=== PATIENT | female | born 1940 | race Caucasian/White ===

== ENCOUNTER 2018-08-04 19:31 | Inpatient (IN) | payer OTHER ==
[2018-08-04] MEDS ORDERED: NA CHLORIDE 0.9% 1,000 ML ONE (20:21)
[2018-08-04] MEDS ORDERED: CEFTRIAXONE/SWI 1gm 1 GM/10 ML SYR ONE (20:21)
--- NOTE | 2018-08-04 20:38 | RAD REPORT ---
EXAM DESCRIPTION: CT - Head Brain Wo Cont - 08/04/2018 8:28 pm CLINICAL HISTORY: Alteration of awareness/confusion COMPARISON: None TECHNIQUE: Computed axial tomography of the head was obtained. IV contrast was not requested. All CT scans are performed using dose optimization technique as appropriate and may include automated exposure control or mA/KV adjustment according to patient size. FINDINGS: An intracranial bleed is not seen . The ventricles are normal in caliber. Cerebral atrophy is present No extra-axial fluid collection is noted. Mild low-density areas within periventricular, deep and sub cortical white matter likely represent ischemic changes secondary to small vessel disease. Fluid within the sinuses/ mastoids is not seen. IMPRESSION: No acute intracranial abnormality is seen. If patient's symptoms persist MRI of the bra in would be recommended.
[2018-08-04 20:41] LABS: Absolute Lymphocytes (CBC) 1.9 K/uL (0.7-4.9); Absolute Monocytes 0.5 K/uL (0.1-1.3); Basophils % 0.8 % (0-1.3); Eosinophils % 2.3 % (0-4.4); Hematocrit 36.4 % (36.0-45.0); Lymphocytes % 34.5 % (15.3-44.8); MPV 9.7 fL (7.6-11.3); Monocytes % 8.7 % (3.3-12.3); RBC Red Blood Cell Count 3.94 M/uL (3.86-4.86)
[2018-08-04 20:44] LABS: Protime INR 1.04
[2018-08-04 20:58] LABS: ALT/SGPT 11 U/L (12-78); AST/SGOT 9 U/L (15-37); Albumin 3.2 g/dL (3.4-5.0); Alkaline Phosphatase 80 U/L (45-117); BUN Blood Urea Nitrogen 8 mg/dL (7-18); Bicarbonate 30 mmol/L (21-32); Bilirubin Direct 0.2 mg/dL (0-0.2); Bilirubin Total 0.6 mg/dL (0.2-1.0); CKMB Creatine Kinase MB 1.1 ng/mL (0.3-3.6); Creatine Phosphokinase 27 U/L (26-192); Glucose Level 93 mg/dL (74-106); Lipase 143 U/L (73-393); Potassium 3.3 mmol/L (3.5-5.1); Protein, Total 7.2 g/dL (6.4-8.2); Sodium Level 145 mmol/L (136-145); Troponin (Emerg Dept Use Only) < 0.02 ng/mL (0.0-0.045)
--- NOTE | 2018-08-04 21:01 | RAD REPORT ---
EXAM DESCRIPTION: [place] Single View08/04/2018 8:53 pm CLINICAL HISTORY: Chest pain COMPARISON: 2017 FINDINGS: 13 millimeter nodular opacity overlying the left upper lobe is unchanged. Right lung appears clear of acute infiltrate. The heart is mildly to moderately enlarged
[2018-08-04] MEDS ORDERED: LABETALOL 20 MG/4ML SYRINGE IV ONE (21:42)
--- NOTE | 2018-08-04 22:55 | ER ---
Nurse's Notes [facility] Name: Ana María Prater Age: 78 yrs Sex: Female : 1940 Arrival Date: 08/04/2018 Time: 19:34 Bed 8 Private MD: Diagnosis: Hypertensive encephalopathy Presentation: 08/04 19:20 Presenting complaint: EMS states: EMS reports patient's stated she took a nap ea earlier today and woke up confused and had trouble speaking that lasted a few moments. EMS stated reports she has dementia, NIH scale was negative. EMS reports BGL 104, pt ambulated to stretcher without assistance. Transition of care: patient was not received from another setting of care. Onset of symptoms was August 04, 2018. Risk Assessment: Do you want to hurt yourself or someone else? Patient reports no desire to harm self or others. Initial Sepsis Screen: Does the patient meet any 2 criteria? No. Patient's initial sepsis screen is negative. Does the patient have a suspected source of infection? No. Patient's initial sepsis screen is negative. Care prior to arrival: labetalol 10 mg IV. 19:20 Method Of Arrival: EMS: [facility] ea 19:20 Acuity: JHON 3 ea Triage Assessment: 19:58 General: Appears in no apparent distress. Behavior is calm, cooperative. Pain: Denies ea pain. Neuro: Level of Consciousness is awake, alert, obeys commands, Oriented to person, [employer] are equal bilaterally Moves all extremities. Speech is normal, Facial symmetry appears normal. Cardiovascular: Patient's skin is warm and dry. Respiratory: Airway is patent Respiratory effort is even, unlabored, Respiratory pattern is regular, symmetrical. Derm: Skin is pink, warm \T\ dry. Historical: - Allergies: 20:01 Codeine; ea 20:01 PENICILLINS; ea - Home Meds: 20:01 valsartan 320 mg Oral tab 1 tab [Active]; Namenda Oral [Active]; metoprolol tartrate 50 ea mg Oral tab 1 tab [Active]; - PMHx: 20:01 Hypertension; Dementia; ea - PSHx: 20:01 Hysterectomy; ea - Immunization history:: Adult Immunizations up to date. - Social history:: Smoking status: Patient/guardian denies using tobacco, Patient/guardian denies using alcohol, street drugs, The patient lives with family. - Ebola Screening: : No symptoms or risks identified at this time. - Family history:: not pertinent. Screenin:20 VAN Screening: Arm Drift: Patient shows no arm weakness. Patient is VAN negative. Fall ea Risk IV access (20 points). 20:48 Abuse screen: Denies threats or abuse. Nutritional screening: No deficits noted. ea Tuberculosis screening: No symptoms or risk factors identified. Assessment: 20:30 Reassessment: Patient and/or family updated on plan of care and expected duration. Pain ea level reassessed. Pt alert and oriented to self. Respirations even and unlabored. Chest expansions even and symmetrical. No s/s of pain or discomfort noted at this time. 21:10 Reassessment: Patient and/or family updated on plan of care and expected duration. Pain ea level reassessed. Pt alert and oriented to self, respirations even and unlabored. Chest expansions even and symmetrical. No s/s of pain or discomfort noted at this time. at bedside. Provider notified of elevated BP, no new orders obtained, NS fluids paused at this time. 22:18 Reassessment: Patient and/or family updated on plan of care and expected duration. Pain ea level reassessed. Provider at bedside updating pt on plan of care. 22:28 Reassessment: pt's 's cell phone number: [phone]. jd3 22:44 Reassessment: No changes from previously documented assessment. Patient and/or family jd3 updated on plan of care and expected duration. Pain level reassessed. 23:43 Reassessment: No changes from previously documented assessment. ea 23:55 Reassessment: Patient and/or family updated on plan of care and expected duration. Pain ea level reassessed. Provider notified of elevated blood pressure. No new orders obtained. 08/05 00:20 Reassessment: Dr. Vera at bedside, verbal order obtained for labetalol 10 mg IVP. ea 00:30 Reassessment: Patient and/or family updated on plan of care and expected duration. Pain ea level reassessed. IV Hydralazine administered, pt tolerated well. 04:17 Reassessment: Pt requires 1 on 1 care, pt is demented, is easily redirected but ea forgets. Pt gets agitated when asked to stay in room. Provider notified. Medication order obtained. Medication administered, pt tolerated well. Vital Signs: 08/04 19:20 BP 154 / 96; Pulse 65; Resp 18; Temp 97.8; Pulse Ox 98% on R/A; Weight 68.04 kg; Height ea 5 ft. 6 in. (167.64 cm); 20:28 BP 159 / 92; Pulse 83; Resp 18; Pulse Ox 100% on R/A; ea 21:00 BP 214 / 108; Pulse 85; Resp 18; Pulse Ox 99% ; ea 21:52 BP 209 / 87; Pulse 61; Resp 18; Pulse Ox 99% ; ea 22:43 BP 187 / 86; Pulse 59; Resp 20 S; Pulse Ox 98% on R/A; jd3 23:55 BP 194 / 98; Pulse 60; Resp 18; Pulse Ox 99% ; ea 08/05 00:36 BP 174 / 102; Pulse 60; Resp 18; Pulse Ox 99% on R/A; ea 00:46 BP 187 / 86; Pulse 73; Resp 18; Pulse Ox 100% ; ea 00:46 BP 187 / 86; Pulse 74; Resp 17; Pulse Ox 100% on R/A; jb5 01:24 BP 177 / 72; Pulse 70; Resp 18; Pulse Ox 99% on R/A; ea 02:41 BP 216 / 102; Pulse 76; Resp 18; Pulse Ox 100% on R/A; jb5 02:48 BP 184 / 75; Pulse 75; Resp 18; Pulse Ox 99% ; ea 03:00 BP 173 / 73; Pulse 73; ea 08/04 19:20 Body Mass Index 24.21 (68.04 kg, 167.64 cm) ED Course: 08/04 19:20 Arm band placed on right wrist. Patient placed in an exam room, on a stretcher, on ea pulse oximetry. 19:20 Patient has correct armband on for positive identification. Bed in low position. Call ea light in reach. Side rails up X2. 19:34 Patient arrived in ED. as 19:37 Nicolas Oscar MD is Attending Physician. ma2 19:52 Tracy Armstrong, LENO is Primary Nurse. ea 19:58 Triage completed. ea 20:16 Patient moved to [place] via stretcher. nj 20:20 Bilirubin, Direct Sent. jb5 20:20 Basic Metabolic Panel Sent. jb5 20:20 Blood Culture Adult (2) Sent. jb5 20:20 CBC with Diff Sent. jb5 20:21 Ckmb Sent. jb5 20:21 CPK Sent. jb5 20:22 Accessed No blood return. Flushes easily. jb5 20:28 CT completed. Patient tolerated procedure well. Patient moved back from CT. az 22:54 Bry Reyna MD is Hospitalizing Provider. ma2 23:35 No provider procedures requiring assistance completed. Patient admitted, IV remains in ea place. 08/05 07:12 Primary Nurse role handed off by Tracy Armstrong RN 07:12 Karen Peters RN is Primary Nurse. sv Administered Medications: Discontinued: NS 0.9% (30 ml/kg) 30 ml/kg IV at bolus once; Sepsis Protocol 08/04 20:18 Drug: Rocephin 1 grams Route: IV; Rate: calculated rate; Site: right antecubital; ea 20:40 Follow up: Response: No adverse reaction; IV Status: Completed infusion ea 20:20 Drug: NS 0.9% (30 ml/kg) 30 ml/kg Route: IV; Rate: bolus; Site: right antecubital; ea 23:00 Follow up: Fluids placed on hold do to elevated BP provider notified ea 21:39 Drug: Labetalol 10 mg Route: IVP; Site: right antecubital; ea 22:00 Follow up: Response: No adverse reaction; Blood pressure is lowered ea 08/05 03:30 Drug: Ativan 2 mg Route: PO; ea Intake: Outcome: 08/04 22:55 Decision to Hospitalize by Provider. sd2 23:00 Instructed on the need for admit. ea 03 03:23 Admitted to ER Hold. Please see [facility] for further documentation. ea 03:23 Condition: stable ea 07:53 Admitted to ICU accompanied by nurse, accompanied by tech, via stretcher, room , 5, sv room , 5, with chart. 08:15 Patient left the ED. sg Signatures: Karen Peters RN RN sv Gay, Steven, RN RN sg Martinez, Amelia as Jordan, Nathan nj Broussard, Jennifer jb5 Tracy Armstrong RN RN ea Davies, Jonathon, RN RN jd3 Alzahri, Mohammad, MD MD ma2 Corrections: (The following items were deleted from the chart) 08/04 21:14 21:10 Reassessment: Patient and/or family updated on plan of care and expected ea duration. Pain level reassessed. Patient is alert, oriented x 3, equal unlabored respirations, skin warm/dry/pink. at bedside. ea 22:44 22:44 Reassessment: Patient and/or family updated on plan of care and expected jd3 duration. Pain level reassessed. Patient is alert, oriented x 3, equal unlabored respirations, skin warm/dry/pink. jd3 23:35 21:10 Reassessment: Patient and/or family updated on plan of care and expected ea duration. Pain level reassessed. Patient is alert, oriented x 3, equal unlabored respirations, skin warm/dry/pink. at bedside. Provider notified of elevated BP, no new orders obtained, NS fluids paused at this time. ea 23:35 20:30 Reassessment: Patient and/or family updated on plan of care and expected ea duration. Pain level reassessed. Patient is alert, oriented x 3, equal unlabored respirations, skin warm/dry/pink. ea 23:35 22:18 Reassessment: Patient and/or family updated on plan of care and expected ea duration. Pain level reassessed. Patient is alert, oriented x 3, equal unlabored respirations, skin warm/dry/pink. Provider at bedside updating pt on plan of care. : 20:20 Creatine Phosphokinase drawn and sent. [address] : 20:20 CKMB Creatine Kinase MB drawn and sent. [address] : 20:20 Blood Culture drawn and sent. [address] : 20:20 CBC with Automated Diff drawn and sent. [address] : 20:20 Bilirubin Direct drawn and sent. [address] : 20:20 Basic Metabolic Panel drawn and sent. [address] : 20:21 LACTATE+C.LAB.BRZ drawn and sent. [address] : 20:21 HEPATIC FUNCTION+C.LAB.BRZ drawn and sent. [address] : 20:21 LIPASE+C.LAB.BRZ drawn and sent. [address] : 20:21 Procalcitonin+C.LAB.BRZ drawn and sent. jb5 EDMS 23:55 20:21 PROTIME (+INR)+COAG.LAB.BRZ drawn and sent. jb5 EDMS : 20:21 PTT, ACTIVATED+COAG.LAB.BRZ drawn and sent. 5 EDMS : 20:21 TROPONIN (EMERG DEPT USE ONLY)+C.LAB.BRZ drawn and sent. [facility] EDMS 23: 20:17 NS 0.9% (30 ml/kg) 30 ml/kg IV at bolus in right antecubital ea ea 23: 23:12 Response: No adverse reaction; IV Status: Completed infusion; IV Intake: 1500ml eaea
--- NOTE | 2018-08-04 22:55 | EDPHYS ---
Physician Documentation [facility] Name: Ana María Prater Age: 78 yrs Sex: Female : 1940 Arrival Date: 08/04/2018 Time: 19:34 Bed 8 Private MD: ED Physician Nicolas Oscar HPI: 08/04 21:20 This 78 yrs old Female presents to ER via EMS with complaints of confusion. ma2 21:20 patient is sent from [facility] for confusion and decreased mentation as her baseline ma2 is aox2 today aox1, no deficit. Onset: The symptoms/episode began/occurred gradually, 2 day(s) ago. Severity of symptoms: At their worst the symptoms were moderate. The patient has not experienced similar symptoms in the past. Historical: - Allergies: 20:01 Codeine; ea 20:01 PENICILLINS; ea - Home Meds: 20:01 valsartan 320 mg Oral tab 1 tab [Active]; Namenda Oral [Active]; metoprolol tartrate 50 ea mg Oral tab 1 tab [Active]; - PMHx: 20:01 Hypertension; Dementia; ea - PSHx: 20:01 Hysterectomy; ea - Immunization history:: Adult Immunizations up to date. - Social history:: Smoking status: Patient/guardian denies using tobacco, Patient/guardian denies using alcohol, street drugs, The patient lives with family. - Ebola Screening: : No symptoms or risks identified at this time. - Family history:: not pertinent. ROS: 21:20 All other systems are negative. ma2 21:20 Unable to obtain ROS due to altered mental status. 22:55 Neck: Negative for injury, pain, and swelling. ma2 Exam: 21:20 Constitutional: This is a well developed, well nourished patient who is awake, alert, ma2 and in no acute distress. Chest/axilla: Normal chest wall appearance and motion. Nontender with no deformity. No lesions are appreciated. Cardiovascular: Regular rate and rhythm with a normal S1 and S2. No gallops, murmurs, or rubs. Normal PMI, no JVD. No pulse deficits. Respiratory: Lungs have equal breath sounds bilaterally, clear to auscultation and percussion. No rales, rhonchi or wheezes noted. No increased work of breathing, no retractions or nasal flaring. Abdomen/GI: Soft, non-tender, with normal bowel sounds. No distension or tympany. No guarding or rebound. No evidence of tenderness throughout. 21:20 Neuro: Orientation: Not oriented to person, place, time, Mentation: appropriate for stated age, Memory: Cranial nerves: grossly normal, Motor: is normal. Vital Signs: 19:20 BP 154 / 96; Pulse 65; Resp 18; Temp 97.8; Pulse Ox 98% on R/A; Weight 68.04 kg; Height ea 5 ft. 6 in. (167.64 cm); 20:28 BP 159 / 92; Pulse 83; Resp 18; Pulse Ox 100% on R/A; ea 21:00 BP 214 / 108; Pulse 85; Resp 18; Pulse Ox 99% ; ea 21:52 BP 209 / 87; Pulse 61; Resp 18; Pulse Ox 99% ; ea 22:43 BP 187 / 86; Pulse 59; Resp 20 S; Pulse Ox 98% on R/A; jd3 23:55 BP 194 / 98; Pulse 60; Resp 18; Pulse Ox 99% ; ea 08/05 00:36 BP 174 / 102; Pulse 60; Resp 18; Pulse Ox 99% on R/A; ea 00:46 BP 187 / 86; Pulse 73; Resp 18; Pulse Ox 100% ; ea 00:46 BP 187 / 86; Pulse 74; Resp 17; Pulse Ox 100% on R/A; jb5 01:24 BP 177 / 72; Pulse 70; Resp 18; Pulse Ox 99% on R/A; ea 02:41 BP 216 / 102; Pulse 76; Resp 18; Pulse Ox 100% on R/A; jb5 02:48 BP 184 / 75; Pulse 75; Resp 18; Pulse Ox 99% ; ea 03:00 BP 173 / 73; Pulse 73; ea 08/04 19:20 Body Mass Index 24.21 (68.04 kg, 167.64 cm) ea MDM: 08/04 19:37 Patient medically screened. ma2 21:20 Differential Diagnosis altered mental status, sepsis, flu, AMS. ma2 21:22 Differential Diagnosis hypertensive encephalopathy . ma2 22:53 Data reviewed: vital signs, nurses notes, lab test result(s), radiologic studies. ma2 Response to treatment: the patient's symptoms have markedly improved after treatment. ED course: bp 250/100 improved to 180/80 after labetelol 10 mg iv . 08/04 19:52 Order name: Urine Culture ky2 08/04 19:52 Order name: Bilirubin, Direct [facility] 08/04 19:52 Order name: Basic Metabolic Panel [facility] 08/04 19:52 Order name: Blood Culture Adult (2) ky2 08/04 19:52 Order name: CBC with Diff [facility] 08/04 19:52 Order name: Ckmb [facility] 08/04 19:52 Order name: CPK [facility] 08/04 19:52 Order name: Urine Microscopic Only [facility] 08/04 19:53 Order name: Urine Culture [facility] 08/04 20:46 Order name: CBC with Automated Diff; Complete Time: 21:53 EDMS 08/04 20:46 Order name: Protime (+INR); Complete Time: 21:53 EDMS 08/04 20:46 Order name: PTT, Activated Partial Thromb; Complete Time: 21:53 EDMS 08/04 20:59 Order name: Basic Metabolic Panel; Complete Time: 21:53 EDMS 08/04 20:59 Order name: Liver (Hepatic) Function; Complete Time: 21:53 EDMS 08/04 20:59 Order name: Creatine Phosphokinase; Complete Time: 21:53 EDMS 08/04 20:59 Order name: CKMB Creatine Kinase MB; Complete Time: 21:53 EDMS 08/04 20:59 Order name: Troponin (Emerg Dept Use Only); Complete Time: 21:53 EDMS 08/04 19:52 Order name: Cardiac monitoring; Complete Time: 22:39 [facility] 08/04 19:52 Order name: EKG - Nurse/Tech; Complete Time: 20:49 [facility] 08/04 19:52 Order name: IV Saline Lock - Large Bore; Complete Time: 22:38 [facility] 08/04 19:52 Order name: Labs collected and sent; Complete Time: 20:20 [facility] 08/04 20:39 Order name: CT; Complete Time: 21:53 EDMS 08/04 20:59 Order name: Lipase; Complete Time: 21:53 EDMS 08/04 21:02 Order name: RAD; Complete Time: 21:53 EDMS 08/04 21:09 Order name: Lactate; Complete Time: 21:53 EDMS 08/04 21:19 Order name: Procalcitonin; Complete Time: 21:53 EDMS 08/04 23:14 Order name: Head Brain Wo Cont EDMS 08/04 23:14 Order name: Chest Single View EDMS 08/04 23:44 Order name: Basic Metabolic Panel EDMS 08/04 23:44 Order name: Liver (Hepatic) Function EDMS 08/04 23:44 Order name: Creatine Phosphokinase EDMS 08/04 23:44 Order name: CKMB Creatine Kinase MB EDMS 08/04 23:44 Order name: Troponin (Emerg Dept Use Only) EDMS 08/04 23:44 Order name: Lipase EDMS 08/04 23:44 Order name: Lactate EDMS 08/04 23:44 Order name: CBC with Automated Diff EDMS 08/04 23:46 Order name: Protime (+INR) EDMS 08/04 23:46 Order name: PTT, Activated Partial Thromb EDMS 08/04 23:46 Order name: Blood Culture EDMS 08/04 23:46 Order name: Blood Culture EDMS 08/04 23:46 Order name: Procalcitonin EDMS 08/05 00:07 Order name: Urine Dipstick--Ancillary (enter results) ag4 08/04 19:52 Order name: O2 Per Protocol; Complete Time: 22:39 ma2 08/04 19:52 Order name: O2 Sat Monitoring; Complete Time: 22:38 ma2 08/04 19:52 Order name: Urine Dipstick-Ancillary (obtain specimen); Complete Time: 23:50 ma2 Administered Medications: Discontinued: NS 0.9% (30 ml/kg) 30 ml/kg IV at bolus once; Sepsis Protocol 20:18 Drug: Rocephin 1 grams Route: IV; Rate: calculated rate; Site: right antecubital; ea 20:40 Follow up: Response: No adverse reaction; IV Status: Completed infusion ea 20:20 Drug: NS 0.9% (30 ml/kg) 30 ml/kg Route: IV; Rate: bolus; Site: right antecubital; ea 23:00 Follow up: Fluids placed on hold do to elevated BP provider notified ea 21:39 Drug: Labetalol 10 mg Route: IVP; Site: right antecubital; ea 22:00 Follow up: Response: No adverse reaction; Blood pressure is lowered ea 08/05 03:30 Drug: Ativan 2 mg Route: PO; jonathan Disposition: 08/04/18 22:55 Hospitalization ordered by Bry Reyna for Inpatient Admission. Preliminary diagnosis is Hypertensive encephalopathy. - Bed requested for Intensive Care Unit. - Status is Inpatient Admission. sg - Condition is Guarded. - Problem is new. - Symptoms have improved. UTI on Admission? No Signatures: Dispatcher [employer] [facility] Kena Rivera RN RN kl Gay, Steven, RN RN sg Antunez, Elena, RN RN ea Alzahri, Mohammad, MD MD ma2 Corrections: (The following items were deleted from the chart) 08/04 23:46 20:11 Head Brain Wo Cont+CT.RAD.BRZ ordered. [facility] 23:49 19:54 Chest Single View+RAD.RAD.BRZ ordered. [facility] 23:55 19:53 Bilirubin Direct ordered. [facility] 23:55 19:53 Basic Metabolic Panel ordered. [facility] EDCT 23:55 19:53 Blood Culture ordered. [facility] 23:55 19:53 CBC with Automated Diff ordered. [facility] EDCT 23:55 19:53 CKMB Creatine Kinase MB ordered. [facility] EDCT 23:55 19:53 Creatine Phosphokinase ordered. [facility] 23:55 19:53 LACTATE+C.LAB.BRZ ordered. [facility] EDCT 23:55 19:53 HEPATIC FUNCTION+C.LAB.BRZ ordered. [facility] 23:55 19:53 LIPASE+C.LAB.BRZ ordered. [facility] EDCT 23:55 19:53 Procalcitonin+C.LAB.BRZ ordered. [facility] EDCT 23:55 19:53 PROTIME (+INR)+COAG.LAB.BRZ ordered. [facility] EDCT 23:55 19:53 PTT, ACTIVATED+COAG.LAB.BRZ ordered. [facility] EDCT 23:55 19:53 TROPONIN (EMERG DEPT USE ONLY)+C.LAB.BRZ ordered. [facility] 08/05 00:57 08/04 22:55 Hospitalization Ordered by Bry Reyna MD for Inpatient Admission. piero Preliminary diagnosis is Hypertensive encephalopathy. Bed requested for Telemetry/MedSurg (Inpatient). Status is Inpatient Admission. Condition is Guarded. Problem is new. Symptoms have improved. UTI on Admission? No. ma2 08/05 04:09 00:57 08/04/2018 22:55 Hospitalization Ordered by Bry Reyna MD for Inpatient kl Admission. Preliminary diagnosis is Hypertensive encephalopathy. Bed requested for [facility] ER HOLD. Status is Inpatient Admission. Condition is Guarded. Problem is new. Symptoms have improved. UTI on Admission? No. kl 06:24 04:09 08/04/2018 22:55 Hospitalization Ordered by Bry Reyna MD for Inpatient kl Admission. Preliminary diagnosis is Hypertensive encephalopathy. Bed requested for Intensive Care Unit. Status is Inpatient Admission. Condition is Guarded. Problem is new. Symptoms have improved. UTI on Admission? No. kl 08:15 06:24 08/04/2018 22:55 Hospitalization Ordered by Bry Reyna MD for Inpatient sg Admission. Preliminary diagnosis is Hypertensive encephalopathy. Bed requested for Intensive Care Unit. Status is Inpatient Admission. Condition is Guarded. Problem is new. Symptoms have improved. UTI on Admission? No. kl
[2018-08-05] MEDS ORDERED: HYDRALAZINE HCL 20 MG/ML VIAL ONE ×2 (00:33→03:02)
--- NOTE | 2018-08-05 00:55 | P.HP ---
Certification for Inpatient Patient admitted to: Inpatient With expected LOS: >2 Midnights Practitioner: I am a practitioner with admitting privileges, knowledge of patient current condition, hospital course, and medical plan of care. Services: Services provided to patient in accordance with Admission requirements found in Title 42 Section 412.3 of the Code of Federal Regulations Patient History Date of Service: 08/05/18 Reason for admission: HTN emergency vs CVA History of Present Illness: Ms Prater is a 78 years old woman with history of dementia, HTN, who woke up from her nap confused, she had slurred speech as well. No weakness, numbness or tingling reported. During her stay in ED, the patient remained confused, she also had problems to find the right world. Lab work was mostly normal. Her BP was 214/88. CT head shows no acute abnormalities. At my encounter the patient remained confused, BP was still elevated despite receive labetalol. No history of fever or chills. Allergies codeine Allergy (Unverified 07/25/16 23:45) Unknown Penicillins Allergy (Unverified 07/25/16 23:45) Unknown Home medications list reviewed: Yes - Past Medical/Surgical History -: HTN -: Dementia -: hysterectomy - Family History Family History: Reviewed- Non-Contributory - Social History Smoking Status: Former smoker Alcohol use: Yes CD- Drugs: No Place of Residence: Home Review of Systems 10-point ROS is otherwise unremarkable Physical Examination - Physical Exam General: Alert, Mild distress, Confused HEENT: Atraumatic, PERRLA, Mucous membr. moist/pink, EOMI, Sclerae nonicteric Neck: Supple, 2+ carotid pulse no bruit, No LAD, Without JVD or thyroid abnormality Respiratory: Normal air movement, Diminished Cardiovascular: Regular rate/rhythm, Normal S1 S2 Gastrointestinal: Normal bowel sounds, No tenderness Musculoskeletal: No tenderness Integumentary: No rashes Neurological: Normal strength at 5/5 x4 extr, Normal tone, Normal affect, Dementia Lymphatics: No axilla or inguinal lymphadenopathy - Studies Laboratory Data (last 24 hrs) 08/04/18 19:52: PT Cancelled, INR Cancelled, APTT Cancelled 08/04/18 19:52: WBC Cancelled, Hgb Cancelled, Hct Cancelled, Plt Count Cancelled 08/04/18 19:52: Sodium Cancelled, Potassium Cancelled, BUN Cancelled, Creatinine Cancelled, Glucose Cancelled, Total Bilirubin Cancelled, AST Cancelled, ALT Cancelled, Alkaline Phosphatase Cancelled, Lipase Cancelled 08/04/18 19:33: PT 12.2, INR 1.04, APTT 30.2 08/04/18 19:33: WBC 5.5, Hgb 12.2, Hct 36.4, Plt Count 158 08/04/18 19:33: Sodium 145, Potassium 3.3 L, BUN 8, Creatinine 0.92, Glucose 93 , Total Bilirubin 0.6, AST 9 L, ALT 11 L, Alkaline Phosphatase 80, Lipase 143 Assessment and Plan - Problems (Diagnosis) (1) Hypertensive emergency Current Visit: Yes Status: Acute (2) Dementia Current Visit: Yes Status: Acute Qualifiers: Dementia type: Alzheimer's disease Alzheimer's disease onset: unspecified onset Dementia behavioral disturbance: with behavioral disturbance Qualified Code(s): G30.9 - Alzheimer's disease, unspecified; F02.81 - Dementia in other diseases classified elsewhere with behavioral disturbance (3) CVA (cerebral vascular accident) Current Visit: Yes Status: Acute Qualifiers: CVA mechanism: unspecified Qualified Code(s): I63.9 - Cerebral infarction, unspecified - Plan The patient will be admitted to the hospital due to severe hypertensive crisis associated with confusion. Diagnostics differentiales include CVA vs hypertensive emergency. Will order ECHO, brain MRI, ASA and statins. - Advance Directives Does patient have a Living Will: No Does patient have a Durable POA for Healthcare: No - Code Status/Comfort Care Code Status Assessed: Yes Code Status: Full Code
[2018-08-05 01:12] LABS: Urine Culture Reflex Order NOT NEEDED
[2018-08-05 01:13] LABS: Urine Bacteria <20 /HPF (<20); Urine RBC <5 /HPF (NONE SEEN)
[2018-08-05 01:29] LABS: Urine Blood TRACE (NEG); Urine Glucose NEGATIVE (NEG); Urine Protein 1+ (NEG); Urine pH 6.5 (5.0-7.0)
[2018-08-05] MEDS ORDERED: ONDANSETRON 4 MG/2 ML VIAL IV PRN (02:47)
[2018-08-05] MEDS: HYDRALAZINE HCL 20 MG/ML VIAL IV PRN ×2 (02:50→08:45)
[2018-08-05] MEDS ORDERED: LORAZEPAM 0.5 MG TABLET ONE (04:17)
[2018-08-05] MEDS ORDERED: ONDANSETRON 4 MG/2 ML VIAL ONE (08:08)
[2018-08-05] MEDS: METOPROLOL TAR 50 MG TAB PO SCH ×2 (10:51→21:47)
[2018-08-05] MEDS: VENLAFAXINE HCL XR 75 MG CAP PO SCH (10:51)
[2018-08-05] MEDS: LOSARTAN POTASSIUM 50 MG TABLET PO SCH (10:51)
[2018-08-05] MEDS: ENOXAPARIN 40 MG/0.4 ML SQ SCH (10:52)
--- NOTE | 2018-08-05 13:42 | EKG ---
Test Date: 2018-08-04 Test Time: 20:35:52 Airline Captain: MAYDA MEASUREMENT RESULTS: Intervals: Rate: 66 ID: [id number] QRSD: 100 QT: 408 QTc: 427 [place]: P: 76 ID: [id number] QRS: -16 T: 55 INTERPRETIVE STATEMENTS: Normal sinus rhythm Moderate voltage criteria for LVH, may be normal variant Borderline ECG Compared to ECG 07/25/2016 14:37:18 Sinus bradycardia no longer present Electronically Signed On 08-05-18 13:41:39 TOMBSTONE ERECTOR by George Cavazos
[2018-08-05] MEDS: HOME MED 1 EA UNK (Memantine Hcl [Namenda Xr] 28 MG) PO SCH (13:59)
[2018-08-05] MEDS: ASPIRIN 81 MG CHEWABLE TABLET PO SCH (14:01)
[2018-08-05] MEDS ORDERED: LORazepam 2 MG/ML VIAL IV ONE ×2 (14:05→20:40)
--- NOTE | 2018-08-05 14:41 | ECHO ---
HEIGHT: 5 ft 7 in WEIGHT: 178 lb 5 oz DATE OF STUDY: 08/05/[address]: Bry Villalobos MD 2-DIMENSIONAL: YES M.MODE: YES DOPPLER: YES COLOR FLOW: YES TDS: YES PORTABLE: DEFINITY: BUBBLE STUDY: DIAGNOSIS: HYPERTENSION CARDIAC HISTORY: CATHERIZATION: SURGERY: PROSTHETIC VALVE: NO PACEMAKER: NO MEASUREMENTS (cm) DIASTOLIC (NORMALS) SYSTOLIC (NORMALS) IVSd 1.3 (0.6-1.2) LA Diam 3.8 (1.9-4.0) LVEF 78% LVIDd 3.8 (3.5-5.7) LVIDs 2.0 (2.0-3.5) %FS 46% LVPWd 1.2 (0.6-1.2) Ao Diam 2.6 (2.0-3.7) 2 DIMENSIONAL ASSESSMENT: RIGHT ATRIUM: NORMAL LEFT ATRIUM: NORMAL RIGHT VENTRICLE: NORMAL LEFT VENTRICLE: LEFT VENTRICULAR HYPERTROPHY TRICUSPID VALVE: NORMAL MITRAL VALVE: NORMAL PULMONIC VALVE: NORMAL AORTIC VALVE: NORMAL PERICARDIAL EFFUSION: NONE AORTIC ROOT: NORMAL LEFT VENTRICULAR WALL MOTION: NORMAL DOPPLER/COLOR FLOW: MILD MITRAL REGURGITATION AND TRICUSPID REGURGITATION. ESTIMATED RIGHT VENTRICULAR SYSTOLIC PRESSURE 45 mmHg. MILD PULMONARY HYPERTENSION. COMMENTS: NORMAL LEFT VENTRICULAR EJECTION FRACTION. LEFT VENTRICULAR HYPERTROPHY. MILD MITRAL REGURGITATION AND TRICUSPID REGURGITATION. MILD PULMONARY HYPERTENSION. TECHNOLOGIST: TADEO COLMENARES
--- NOTE | 2018-08-05 15:27 | PN ---
Date of Progress Note: 08/05/2018 Code Status: Full. Subjective: The patient is confused, which is her baseline, in the ICU with elevated blood pressure, systolic in the 200s, despite IV medications. No family at the bedside. Medications: List reviewed. Physical Examination: Vital Signs: Temperature 98.7, heart rate 88, blood pressure 210/74, respirations 16, O2 of 100% on room air. General: Awake, alert, oriented to self only. An elderly female, ill-appearing. CV: S1 and S2. Regular rate and rhythm. Peripheral pulses present. Respiratory: Moving air well bilaterally. No wheezing or stridor. Gastrointestinal: Abdomen is soft, nontender, nondistended. Positive bowel sounds. Extremities: No clubbing, cyanosis, or edema. Neuro: No focal neurological deficit. Speech is normal. Laboratory Data: Pending. Lactate is 1.2. Troponin less than 0.02. Blood cultures pending. Assessment: A 78-year-old female with: 1.Hypertensive emergency. The patient has some confusion. We will continue with p.r.n. IV medicati ons. Blood pressure improved to 180s. We will continue to monitor. Troponin is negative. 2.Alzheimer dementia, early onset, with behavioral disturbances. 3.Possible cerebrovascular accident. We will obtain MRI of the brain. Head CT scan is negative. 4.Hypokalemia, replaced. We will continue to monitor. 5.Deep vein thrombosis prophylaxis addressed. Plan: The patient will need premedication for MRI. We will follow up on results. Neurology consult ation. Resume home medications. /BRENDA Voice ID: [id number] Report ID: [id number]
[2018-08-05] MEDS ORDERED: PNEUMOCOCCAL VACCINE 0.5 ML IMVAC ONE (16:00)
--- NOTE | 2018-08-05 20:01 | CON ---
Consultation called because of possible transient ischemic attack versus hypertensive emergency. History Of Present Illness: Ms. Prater is a 78-year-old patient, with a history of uncontrolled hypert ension and dementia, who woke up confused yesterday. The patient's provided information. Lupe jones had slurred speech and was disoriented. The patient had difficulty identifying what she wanted to say and completing thoughts. She was brought to [facility] and found to have elevated blood pressure, systolic around 214, diastolic 88. In the emergency room, the patient was noted to be sti ll confused. Head CT scan was done. The study showed marked moderate small vessel ischemic disease without acute ischemic or hemorrhagic change. Brain MRI is pending. Her laboratory studies revealed a completely normal complete blood count with differential, normal coagulation panel, and basic meta bolic panel was remarkable for slightly low calcium of 8.3 and slightly low potassium of 3.3. Her ur inalysis did suggest a urinary tract infection, 1+ esterase, 2+ white blood cells, but with negative bacteria and negative nitrites. She did receive a gram of Rocephin in the emergency room along with hydralazine, labetalol and Ativan for blood pressure control. She returned towards baseline when she was admitted to the ICU and has currently remained at baseline, which is moderate dementia. Past Medical History: Hypertension and dementia. Past Surgical History: Hysterectomy. Allergies: CODEINE AND PENICILLIN. Family History: Noncontributory. Social History: Smoked in the past and uses alcohol. The patient denies IV drug use. Current Medications: Effexor 150 mg daily, Zofran 4 mg every 6 hours as needed, Lopressor 50 mg twic e daily, Cozaar 100 mg daily, Apresoline 10 mg IV as needed, aspirin 81 mg daily, and Lovenox 40 mg d aily. Review of Systems: Currently not reliable as the patient is unable to give a consistent history. Physical Examination: VITAL SIGNS: Blood pressure 142/84, pulse ranged 88 to 92, temperature 98.7, respiratory rate 16 to 20, weight 178 pounds, height 5 feet 7 inches, BMI 27.9. GENERAL: Ms. Prater is resting in bed. She is just finishing lunch, which she said was delicious and she appears to be in no acute distress. HEENT: She is normocephalic and atraumatic. Sclerae are anicteric. Oropharynx is moist. Neck: Supple. Chest: Clear. Heart: Regular. Extremities: Show no edema or cyanosis. Neurological: She is alert and oriented to person, but not to situation, place, or time. She is dis oriented to the year, the month, the day, the date, the day of the week. She is able to repeat 3 wor ds immediately after she is told each word. However, she is unable to recall 3 words after 3 minutes . She is unable to spell the word world in reverse. She has difficulty repeating a full sentence. She is unable to copy intersecting polygons and unable to write a brief sentence. She apparently can score a meaningful number on her mini-mental status examination bringing it down to 0/30. Neurologi howard on cranial nerves, no deficits on 2 through 12. On motor, she has no focal weakness, at least 4+/5 strength proximally and distally in both extremities. Her sensory examination is intact to ligh t touch and temperature with stocking-glove loss. Reflexes show paratonia in the upper extremities a nd depressed reflexes. Coordination is slow, but intact in the upper and lower extremities. Electrocardiogram shows normal sinus rhythm with moderate voltage criteria for left ventricular hyper trophy and chest x-ray showed heart [id number] enlarged and a 3 mm nodular opacity overlying the left upper lobe and that is unchanged from the study in 2017. Assessment: Ms. Prater is a 78-year-old patient with a possible transient ischemic attack in the [facility] of uncontrolled hypertension. She was actually not taking her aspirin prior to her admission. Lupe jones is now placed on aspirin 81 mg daily. She has not yet had a lipid panel. She does have an advance d dementia, possibly vascular dementia, although Alzheimer's type cannot be ruled out. She has no ev idence of a systemic infection, weak evidence for urinary tract infection. She has received a gram o f Rocephin. Plan: 1.More aggressive control of hypertension. 2.Aspirin 81 mg daily. 3.May resume either Namenda or Aricept. 4.She may follow up with her primary care physician and neurologist if she has a neurologist. Other bond, she may follow up in my office in 1 month. TAZ/BRENDA Voice ID: [id number] Report ID: [id number]
[2018-08-05] MEDS ORDERED: LORazepam 2 MG/ML VIAL ONE (20:48)
--- NOTE | 2018-08-05 21:25 | RAD REPORT ---
EXAM DESCRIPTION: MRI - Brain W/Wo Cont - 08/05/2018 9:14 pm CLINICAL HISTORY: Transient alteration of awareness, hypertension, CVA COMPARISON: CT August 04 TECHNIQUE: Sagittal and axial T1-weighted images were obtained. Axial PD/heavily T2-weighted and T2- FLAIR images were obtained along with axial DWI/ADC mapping sequences. Coronal heavily T2 weighted s equence obtained. Axial and coronal post-contrast T1-weighted images were also obtained. A 18 ml Mul tihance contrast following utilized. FINDINGS: No intracranial hemorrhage, mass or acute infarction. There is no edema or shift of midli ne structures. No extra-axial fluid collections. Aviles-matter/white matter junction is preserved. Sig nal voids are seen as a normal finding in the major intracranial vessels. Patient has prominent atrop hy and chronic ischemic change. Ventricles are in proportion to volume loss. Post-contrast images have significant motion degradation artifacts. No abnormal brain parenchymal or dural enhancement seen. Mastoid air cells and paranasal sinuses are clear. IMPRESSION: No hemorrhage, mass or acute infarction. No acute findings. Prominent atrophy and chronic ischemic change.
[2018-08-06 06:35] LABS: Absolute Lymphocytes (CBC) 1.4 K/uL (0.7-4.9); Absolute Monocytes 0.5 K/uL (0.1-1.3); Absolute Neutrophil 2.6 K/uL (1.8-8.0); Basophils % 0.6 % (0-1.3); Eosinophils % 2.1 % (0-4.4); Hematocrit 31.5 % (36.0-45.0); MPV 9.6 fL (7.6-11.3); RBC Red Blood Cell Count 3.44 M/uL (3.86-4.86)
[2018-08-06] MEDS: METOPROLOL TAR 50 MG TAB PO SCH (08:12)
[2018-08-06] MEDS: LOSARTAN POTASSIUM 50 MG TABLET PO SCH (08:12)
[2018-08-06] MEDS: ASPIRIN 81 MG CHEWABLE TABLET PO SCH (08:12)
[2018-08-06] MEDS: ENOXAPARIN 40 MG/0.4 ML SQ SCH (08:13)
[2018-08-06] MEDS ORDERED: PNEUMOCOCCAL VACCINE 0.5 ML IMVAC ONE (09:00)
[2018-08-06] MEDS: VENLAFAXINE HCL XR 75 MG CAP PO SCH (09:51)
[2018-08-06] MEDS: HOME MED 1 EA UNK (Memantine Hcl [Namenda Xr] 28 MG) PO SCH (09:51)
[2018-08-06] MEDS: HYDRALAZINE HCL 20 MG/ML VIAL IV PRN (12:31)
--- NOTE | 2018-08-06 13:16 | P.DS ---
Admission Date: 08/05/18 Discharge Date: 08/06/18 Disposition: ROUTINE DISCHARGE Discharge Condition: GOOD Reason for Admission: HTN emergency vs CVA Consultations: Neurology - Problems (1) Hypertensive emergency Status: Acute (2) CVA (cerebral vascular accident) Status: Ruled-out Qualifiers: CVA mechanism: unspecified Qualified Code(s): I63.9 - Cerebral infarction, unspecified (3) Dementia Status: Chronic Qualifiers: Dementia type: Alzheimer's disease Alzheimer's disease onset: unspecified onset Dementia behavioral disturbance: with behavioral disturbance Qualified Code(s): G30.9 - Alzheimer's disease, unspecified; F02.81 - Dementia in other diseases classified elsewhere with behavioral disturbance Brief History of Present Illness: Ms Prater is a 78 years old woman with history of dementia, HTN, who woke up from her nap confused, she had slurred speech as well. No weakness, numbness or tingling reported. During her stay in ED, the patient remained confused, she also had problems to find the right world. Lab work was mostly normal. Her BP was 214/88. CT head shows no acute abnormalities. At my encounter the patient remained confused, BP was still elevated despite receive labetalol. No history of fever or chills. Hospital Course: Overall during the hospital stay patient remained stable Patient was initially admitted to the hospital for hypertensive urgency causing her to have possible slurred speech. Patient had extensive imaging done here in the hospital with head CT and brain MRI which was both negative for acute CVA. Neurology was consulted who recommended the patient can then be discharged home on aspirin after her vitals have been stable. Patient's blood pressure stayed stable while here in the hospital after being given IV hydralazine in the ER. Patient did well overall. Patient's family at bedside did mention that patient's blood pressure was elevated at the house due to lower back pain which has been chronically getting worse. At this time patient' s family was educated extensively on adequate pain control to help with the blood pressure control at home. Patient was asked to resume taking her losartan and beta-bonifacio that she takes at home and was asked to follow italic in about 1-2 days post discharge. Once patient was doing well work with physical therapy and CV was ruled out patient then was discharged home under stable condition and was asked to follow up with PCP in about 1-2 days post discharge as mentioned above. Vital Signs/Physical Exam: Temp Pulse Resp BP Pulse Ox 97.5 F 76 21 H 172/68 H 95 08/06/18 12:00 08/06/18 12:00 08/06/18 12:00 08/06/18 12:00 08/06/18 03:00 General: Alert, In no apparent distress HEENT: Atraumatic, PERRLA, EOMI Neck: Supple, JVD not distended Respiratory: Clear to auscultation bilaterally, Normal air movement Cardiovascular: Regular rate/rhythm, Normal S1 S2 Gastrointestinal: Normal bowel sounds, No tenderness Musculoskeletal: No tenderness Integumentary: No rashes Neurological: Normal speech, Normal tone, Normal affect Lymphatics: No axilla or inguinal lymphadenopathy Laboratory Data at Discharge: WBC 4.6 K/uL (4.3-10.9) D 08/06/18 04:29 Hgb 10.8 g/dL (12.0-15.0) L 08/06/18 04:29 Hct 31.5 % (36.0-45.0) L 08/06/18 04:29 Plt Count 165 K/uL (152-406) 08/06/18 04:29 PT 12.2 SECONDS (9.5-12.5) 08/04/18 19:33 INR 1.04 08/04/18 19:33 APTT 30.2 SECONDS (24.3-36.9) 08/04/18 19:33 Sodium 145 mmol/L (136-145) 08/06/18 05:29 Potassium 3.0 mmol/L (3.5-5.1) L 08/06/18 05:29 BUN 14 mg/dL (7-18) 08/06/18 05:29 Creatinine 0.99 mg/dL (0.55-1.3) 08/06/18 05:29 Glucose 87 mg/dL (74-106) 08/06/18 05:29 Total Bilirubin 0.6 mg/dL (0.2-1.0) 08/04/18 19:33 AST 9 U/L (15-37) L 08/04/18 19:33 ALT 11 U/L (12-78) L 08/04/18 19:33 Alkaline Phosphatase 80 U/L (45-117) 08/04/18 19:33 Troponin I 0.12 ng/mL (0.0-0.045) H 08/05/18 14:45 Triglycerides 108 mg/dL (<150) 08/06/18 05:29 Cholesterol 160 mg/dL (<200) 08/06/18 05:29 HDL Cholesterol 63 mg/dL (40-60) H 08/06/18 05:29 Cholesterol/HDL Ratio 2.54 08/06/18 05:29 Lipase 143 U/L (73-393) 08/04/18 19:33 Home Medications: Losartan Potassium [Cozaar] 100 mg PO DAILY 08/05/18 Memantine HCl [Namenda Xr] 28 mg PO DAILY 08/05/18 Metoprolol Tartrate [Lopressor*] 50 mg PO BID 08/05/18 Venlafaxine HCl [Effexor XR] 150 mg PO DAILY 08/05/18 Aspirin Chewable [Aspirin Chewable*] 81 mg PO DAILY #120 tab.chew 08/06/18 traMADol HCL [Ultram*] 25 mg PO Q8H PRN #60 tab 08/06/18 New Medications: Aspirin Chewable [Aspirin Chewable*] 81 mg PO DAILY #120 tab.chew traMADol HCL [Ultram*] 25 mg PO Q8H PRN #60 tab PRN Reason: Pain Patient Discharge Instructions: Please f.u with PCP and Cardiology in 1 to 2 week post discharge. BP goal: 140/85. Hold BP medication if BP less than 120/ 80. New medication. Tramadol 50mg as needed for pain. Please only take half the pill 25mg at a time. Can be repeated every 8 hrs as needed. Diet: Regular Activity: Ad emile Followup: Campbell Yuen MD [ASSOCIATE-ACTIVE - CAN ADMIT] - George Cavazos MD [ACTIVE - CAN ADMIT] - 1 Week
== END 2018-08-06 12:45 | disposition home or self-care (01) | DRG 304 ==
LOC: ER 19:31 → ERHOLD 08-05 00:15 → 3RD-ICU 08-05 07:53
PROVIDERS: ADMIT Internal Medicine; ATTEND Family Medicine
DX: I16.1 Hypertensive emergency (principal); I63.9 Cerebral infarction, unspecified; I67.4 Hypertensive encephalopathy; F02.80 Dementia in other diseases classified elsewhere, unspecified severity, without behavioral disturbance, psychotic disturbance, mood disturbance, and anxiety; Z88.5 Allergy status to narcotic agent; Z88.0 Allergy status to penicillin; Z87.891 Personal history of nicotine dependence; G30.0 Alzheimer's disease with early onset; E87.6 Hypokalemia
CPT/HCPCS: 36415; 70450; 70553; 71045; 80048; 80061; 80076; 81003; 81015; 82550; 82553; 83605; 83690; 84145; 84484; 85025; 85610; 85730; 87040; 87077; 87086; 87088; 87186; 87205; 90670; 93005; 93306; 96365; 96375; 97163; 99285; A9577; G0009; J0360; J0696; J1650; J2405; J7030